=== PATIENT | male | born 1965 | race Asian ===

== ENCOUNTER 2025-03-15 07:24 | Day surgery (SDC) | payer OTHER ==
[2025-03-08 11:16] VITALS: BMI 25.6
[2025-03-15] MEDS ORDERED: PROPOFOL 40 ML ONE (09:17)
[2025-03-15] MEDS ORDERED: Lidocaine 1% PF 5 ML VIAL ONE (09:17)
== END 2025-03-15 10:50 | disposition home or self-care (01) ==
LOC: CSHSDC 07:24
PROVIDERS: ATTEND Surgery
PROC: 0DJD8ZZ Inspection of Lower Intestinal Tract, Via Natural or Artificial Opening Endoscopic (ICD-10-PCS; principal; 2025-03-15)
DX: Z12.11 Encounter for screening for malignant neoplasm of colon (principal); I10 Essential (primary) hypertension; Z87.891 Personal history of nicotine dependence; Z91.013 Allergy to seafood
CPT/HCPCS: J2704